=== PATIENT | female | born 2000 | race Caucasian/White ===

== ENCOUNTER 2022-10-28 15:06 | Day surgery (SDC) | payer OTHER ==
[2022-10-28 17:08] VITALS: BMI 26.6
[2022-10-28 17:40] LABS: Fetal Membranes Rupture No Membranes Rupture (No Rupture)
[2022-10-28] MEDS ORDERED: Lidocaine 1% (PF) 30 ML VIAL SC PRN (18:34)
[2022-10-28] MEDS ORDERED: Promethazine HCl 25 MG/ML VIAL IM PRN (18:34)
[2022-10-28] MEDS ORDERED: Ondansetron PF 4 MG/2 ML Vial IVP PRN (18:34)
[2022-10-28] MEDS ORDERED: Methylergonovine 0.2 MG/ML VIAL IM PRN (18:34)
[2022-10-28] MEDS ORDERED: Docusate 100 MG CAP PO PRN (18:34)
[2022-10-28] MEDS ORDERED: Tranexamic Acid 1,000 MG/10 ML VIAL IVP PRN (18:34)
[2022-10-28] MEDS ORDERED: Misoprostol 200 MCG TAB PR PRN (18:34)
[2022-10-28] MEDS ORDERED: Acetaminophen 500 MG TAB PO PRN (18:34)
[2022-10-28] MEDS ORDERED: Carboprost 250 MCG/ML AMP IM PRN (18:34)
[2022-10-28] MEDS ORDERED: hydrALAZINE 20 MG/ML VIAL SLOW IVP PRN (18:34)
[2022-10-28] MEDS ORDERED: Diphenoxylate HCl/Atropine Tablet PO PRN (18:34)
[2022-10-28] MEDS ORDERED: fentaNYL 50 mcg/mL 1 mL Vial SLOW IVP PRN (18:34)
[2022-10-28] MEDS ORDERED: Misoprostol 100 MCG TAB VAG SCH (18:45)
[2022-10-28] MEDS ORDERED: Lactated Ringer's 1,000 ML IV SCH (18:45)
[2022-10-28] MEDS ORDERED: NS w/ Oxytocin 30 units 500 ML IV SCH ×2 (18:45)
== END 2022-10-28 20:21 | disposition home or self-care (01) ==
LOC: CSHLD/OP 15:06
PROVIDERS: ATTEND Family Medicine
DX: O47.1 False labor at or after 37 completed weeks of gestation (principal); Z79.899 Other long term (current) drug therapy; Z3A.40 40 weeks gestation of pregnancy
CPT/HCPCS: 84112

== ENCOUNTER 2022-10-29 07:28 | Inpatient (IN) | payer OTHER ==
[2022-10-29] MEDS ORDERED: HYDROcodone/Acetaminophen 5/325 mg Tablet PO PRN ×4 (09:01→21:25)
[2022-10-29] MEDS ORDERED: Ibuprofen 800 MG TAB PO PRN (09:01)
[2022-10-29] MEDS ORDERED: hydrALAZINE 20 MG/ML VIAL SLOW IVP PRN ×3 (09:01→21:25)
[2022-10-29] MEDS ORDERED: Misoprostol 200 MCG TAB PR PRN (09:01)
[2022-10-29] MEDS ORDERED: Diphenoxylate HCl/Atropine Tablet PO PRN (09:01)
[2022-10-29] MEDS ORDERED: Methylergonovine 0.2 MG/ML VIAL IM PRN (09:01)
[2022-10-29] MEDS ORDERED: Lidocaine 1% (PF) 30 ML VIAL SC PRN (09:01)
[2022-10-29] MEDS ORDERED: Acetaminophen 500 MG TAB PO PRN (09:01)
[2022-10-29] MEDS ORDERED: Tranexamic Acid 1,000 MG/10 ML VIAL IVP PRN (09:01)
[2022-10-29] MEDS ORDERED: fentaNYL 50 mcg/mL 1 mL Vial SLOW IVP PRN (09:01)
[2022-10-29] MEDS ORDERED: Carboprost 250 MCG/ML AMP IM PRN (09:01)
[2022-10-29] MEDS ORDERED: Ondansetron PF 4 MG/2 ML Vial IVP PRN ×4 (09:01→21:25)
[2022-10-29] MEDS ORDERED: Promethazine HCl 25 MG/ML VIAL IM PRN ×4 (09:01→21:25)
[2022-10-29] MEDS ORDERED: NS w/ Oxytocin 30 units 500 ML IV SCH ×3 (09:15)
[2022-10-29 09:50] LABS: Hematocrit 36.1 % (34.9-44.5); Hemoglobin 12.3 g/dL (12.0-15.5); Mean Corpuscular HGB CONC 34.1 g/dL (32.0-36.0); Mean Corpuscular Hemoglobin 29.1 pg (27.0-33.0); Mean Corpuscular Volume 85.5 fl (81.6-98.3); Mean Platelet Volume 10.8 fl (7.4-10.4); Platelet Count 244 10x3/uL (150-450); RBC Distribution Width 12.9 % (11.5-14.5); Red Blood Cell (RBC) Count 4.22 10x6/uL (3.90-5.03); White Blood Cell (WBC) Count 11.1 10x3/uL (3.5-10.5)
[2022-10-29] MEDS ORDERED: diphenhydrAMINE 50 MG/ML VIAL IVP PRN (10:04)
[2022-10-29] MEDS ORDERED: ePHEDrine Sulfate 50 MG/10 ML VIAL SLOW IVP PRN (10:04)
[2022-10-29] MEDS ORDERED: Moisturizing Cream (Eucerin) 113 GM JAR TOP PRN (10:04)
[2022-10-29] MEDS ORDERED: Acetaminophen 325 MG TAB PO PRN (10:04)
[2022-10-29] MEDS ORDERED: Naloxone HCl 0.4 mg/ml Vial IVP PRN ×2 (10:04)
[2022-10-29] MEDS ORDERED: Lactated Ringer's 500 ML IV PRN (10:04)
[2022-10-29] MEDS ORDERED: fentaNYL 2 mcg/Ropivacaine 0.2% Epidural 100 ML CADD EPIDURAL SCH (10:15)
[2022-10-29] MEDS ORDERED: Communication Order-Pharmacy FS SCH (10:15)
[2022-10-29 10:26] LABS: HBSAg Index 0.13 S/CO (0-0.99); Hep B Surf Ag - L&D Non-Reactive S/CO (NonReactive); Syphilis Antibody Nonreactive (Nonreactive); Syphilis Antibody Index 0.05 S/CO (<1.00 Non-Reactive)
[2022-10-29] MEDS: Lactated Ringer's 1,000 ML IV SCH ×2 (10:52→11:47)
[2022-10-29] MEDS ORDERED: Boostrix 0.5 ML (Tdap) VIAL (>/=7 yrs of age) IM ONE (20:04)
[2022-10-29] MEDS ORDERED: diphenhydrAMINE 25 MG CAP PO PRN ×2 (20:04→21:25)
[2022-10-29] MEDS ORDERED: Preparation H Ointment 28 GM TUBE PR PRN ×2 (20:04→21:25)
[2022-10-29] MEDS ORDERED: Benzocaine-Menthol 82.5 ML CAN TOP PRN (20:04)
[2022-10-29] MEDS ORDERED: Lanolin Ointment 7 GM TUBE TOP PRN ×2 (20:04→21:25)
[2022-10-29] MEDS ORDERED: Bisacodyl 10 MG SUPP PR PRN ×2 (20:04→21:25)
[2022-10-29] MEDS ORDERED: Docusate 100 MG CAP PO SCH ×2 (21:00→21:30)
[2022-10-29 21:20] VITALS: BMI 27.3
[2022-10-29] MEDS ORDERED: Ibuprofen 800 MG TAB PO SCH (22:00)
[2022-10-29] MEDS: Ibuprofen 800 MG TAB PO SCH (23:00)
[2022-10-30] MEDS: HYDROcodone/Acetaminophen 5/325 mg Tablet PO PRN ×3 (02:19→21:28)
[2022-10-30 04:23] LABS: #Monocytes 0.6 10x3/uL (0.0-1.1); #Neutrophils 12.1 10x3/uL (1.5-8.4); %Basophils 0.2 % (0.0-2.0); %Lymphocytes 9.2 % (18.0-47.0); %Neutrophils 86.2 % (40.0-75.0); Hematocrit 27.1 % (34.9-44.5); Mean Corpuscular HGB CONC 33.2 g/dL (32.0-36.0); Mean Corpuscular Hemoglobin 29.4 pg (27.0-33.0); Mean Corpuscular Volume 88.6 fl (81.6-98.3); Mean Platelet Volume 11.2 fl (7.4-10.4); Platelet Count 195 10x3/uL (150-450); RBC Distribution Width 12.9 % (11.5-14.5); Red Blood Cell (RBC) Count 3.06 10x6/uL (3.90-5.03); White Blood Cell (WBC) Count 14.1 10x3/uL (3.5-10.5)
[2022-10-30] MEDS: Ibuprofen 800 MG TAB PO SCH ×3 (05:37→21:27)
[2022-10-30] MEDS ORDERED: Ferrous Sulfate 325 MG TAB PO SCH (08:00)
[2022-10-30] MEDS: Ferrous Sulfate 325 MG TAB PO SCH ×2 (08:30→17:58)
[2022-10-30] MEDS: Prenatal Vitamin 1 TAB PO SCH (08:30)
[2022-10-30] MEDS: Docusate 100 MG CAP PO SCH ×2 (08:30→21:27)
[2022-10-30] MEDS: Milk Of Magnesia 30 ML UDCUP PO SCH (08:31)
[2022-10-30] MEDS ORDERED: Prenatal Vitamin 1 TAB PO SCH (09:00)
[2022-10-30] MEDS ORDERED: Bupivacaine 0.25% HCL 30 ML VIAL ONE (14:00)
[2022-10-30] MEDS: Benzocaine-Menthol 82.5 ML CAN TOP PRN (14:07)
[2022-10-30] MEDS ORDERED: Witch Hazel-Glycerin 1 EACH JAR TOP PRN (15:32)
[2022-10-31] MEDS: Ibuprofen 800 MG TAB PO SCH ×2 (06:01→13:29)
[2022-10-31] MEDS: HYDROcodone/Acetaminophen 5/325 mg Tablet PO PRN ×2 (06:03→15:30)
[2022-10-31 07:41] VITALS: BP 132/90; TEMP 97.9
[2022-10-31] MEDS: Ferrous Sulfate 325 MG TAB PO SCH (08:34)
[2022-10-31] MEDS: Prenatal Vitamin 1 TAB PO SCH (08:34)
[2022-10-31] MEDS: Milk Of Magnesia 30 ML UDCUP PO SCH (08:34)
[2022-10-31] MEDS: Docusate 100 MG CAP PO SCH (08:34)
[2022-10-31] MEDS: Benzocaine-Menthol 82.5 ML CAN TOP PRN (13:29)
== END 2022-10-31 16:00 | disposition home or self-care (01) | DRG 768 ==
LOC: CSHLD/OP 07:28 → CSHLD 09:02 → CSHPP 23:00
PROVIDERS: ADMIT Family Medicine; ATTEND Family Medicine
PROC: 10D07Z6 Extraction of Products of Conception, Vacuum, Via Natural or Artificial Opening (ICD-10-PCS; principal; 2022-10-29)
PROC: 0DQR0ZZ Repair Anal Sphincter, Open Approach (ICD-10-PCS; 2022-10-29)
PROC: 10907ZC Drainage of Amniotic Fluid, Therapeutic from Products of Conception, Via Natural or Artificial Opening (ICD-10-PCS; 2022-10-29)
DX: O48.0 Post-term pregnancy (principal); Z37.0 Single live birth; O70.20 Third degree perineal laceration during delivery, unspecified; O76 Abnormality in fetal heart rate and rhythm complicating labor and delivery; Z3A.40 40 weeks gestation of pregnancy
CPT/HCPCS: 36415; 51702; 84112; 85025; 85027; 85461; 86780; 86850; 86870; 86900; 86901; 87340; 90384; 96372; 99285; J2405; J2590; J7120; S0020